=== PATIENT | male | born 1965 | race Caucasian/White ===

== ENCOUNTER 2018-01-28 18:18 | Emergency (ER) | payer BC ==
--- NOTE | 2018-01-28 19:32 | ED Physician Chart ---
ED Chief Complaint/HPI - Patient Information Date Seen:: 01/28/18 Time Seen:: 19:31 Chief Complaint:: Right lower jaw pain History of Present Illness:: 52 yo male had sudden onset of right lower jaw pain for 2 days. Had jaw trauma with right mandibular surgery 20 years ago. Currently taking acyclovir 400mg daily for herpes. Allergies:: Allergies Allergy/AdvReac Type Severity Reaction Status Date / Time No Known Allergies Allergy Verified 01/28/18 18:30 Vitals:: Vital Signs - 8 hr 01/28/18 18:31 Temp 97.2 F HR 66 RR 16 BP 156/90 O2 Sat % 100 ED Review of Systems - Review of Systems General/Constitutional: No fever, No chills ED Past Medical History - Past Medical History Past Medical History: Other (herpes) Social History: Non Smoker, Alcohol, No Drug Use Surgical History: other (right mandibular surgery) Family Medical History - Family Member Mother History Unknown: Yes ED Physical Exam - Physical Examination Other ENMT comments:: Right lingual side of gingival mucosal tenderness with erythema ED Labs/Radiology/EKG Results - Radiology Results Results: CT maxillofacial without contrast: no abnormality ED Assessment - Assessment General Assessment: Right mandibular gingivitis Assessment/Comments:: CT maxillofacial CBC, CMP D/c home Clindamycin 300mg q8h x 7 days Ibuprofen 800mg q12h x 7 days F/u PCP for ENT referral if symptoms worsen ED Septic Shock - . Is Septic Shock (SBP<90, OR Lactate>4 mmol\L) present?: No - <6hrs of presentation: Vital Signs: Vital Signs - 8 hr 01/28/18 18:31 Temp 97.2 F HR 66 RR 16 BP 156/90 O2 Sat % 100 ED Reassessment (Disposition) - Reassessment Reassessment Condition:: Unchanged - Patient Disposition Discharge/Transfer:: Home ED Discharge Plan - Patient Disposition Instructions: Gingivitis, Mandibular Contusion, [id number]
[2018-01-28 20:32] LABS: % BASOPHILS 0.5 % (0.0-2.0); % EOSINOPHILS 1.9 % (0.0-5.0); % LYMPHOCYTES 25.2 % (20.0-50.0); % MONOCYTES 6.6 % (2.0-10.0); % NEUTROPHILS 65.8 % (40.0-80.0); EOSINOPHILE ABSOLUTE 0.2 Th/cmm (0.1-0.4); HEMATOCRIT 45.2 % (41.0-60); HEMOGLOBIN 15.3 gm/dL (12-16); LYMPHOCYTE ABSOLUTE 2.2 Th/cmm (1.5-3.0); MEAN CELL VOLUME 90.2 fl (80-99); MEAN CORPUSCULAR HEMOGLOBIN 30.5 pg (26.0-30.0); MEAN CORPUSCULAR HGB CONC 33.9 pg (28.0-36.0); MEAN PLATELET VOLUME 9.5 fl; MONOCYTE ABSOLUTE 0.6 Th/cmm (0.3-1.0); NEUTROPHILE ABSOLUTE 5.8 Th/cmm (1.8-8.0); PLATELET COUNT 267 Th/cmm (150-400); RED BLOOD COUNT 5.02 Mil/cmm (4.30-5.70); RED CELL DISTRIBUTION WIDTH 12.2 % (11.5-20.0); WHITE BLOOD COUNT 8.8 Th/cmm (4.8-10.8)
[2018-01-28 20:45] LABS: ALB/GLOB RATIO 2.1 (1.0-1.8); ALBUMIN 4.8 gm/dL (4.2-5.5); ALKALINE PHOSPHATASE 67 U/L (34-104); ANION GAP 9.6 (7.0-16.0); BILIRUBIN,TOTAL 0.5 mg/dL (0.3-1.0); BUN - UREA NITROGEN 15 mg/dL (7-25); CALCIUM SERUM 9.7 mg/dL (8.6-10.3); CARBON DIOXIDE 25.7 mEq/L (21.0-31.0); CHLORIDE 104 mEq/L (98-107); GFR AFRICAN-AMERICAN > 60.0 ml/min (>90); GFR NON AFRICAN-AMERICAN > 60.0 ml/min; GLUCOSE 104 mg/dL (70-105); POTASSIUM SERUM 4.3 mEq/L (3.5-5.1); SGOT 13 U/L (13-39); SGPT/ALT 20 U/L (7-52); SODIUM SERUM 135 mEq/L (136-145); TOTAL PROTEIN,SERUM 7.1 gm/dL (6.0-8.3)
--- NOTE | 2018-01-29 08:31 | Diagnostic Imaging Report ---
Exam: CT examination of facial bones Right lower jaw pain. Total DLP equals 435 CTDI equals 20.6 Findings: Multiple contiguous thin section of facial bones obtained the plane with coronal sagittal reconstruction technique, no prior studies available comparison. The study demonstrates no evidence of fracture dislocation. The maxillary mandible intact. Zygomatic arches are normal. The orbits are intact. Intraconal content is normal. The nasal bones are intact. There is evidence for extensive the dental disease with the metallic artifact status post the dental fillings placement. IMPRESSION: Essentially unremarkable examination of the facial bones.
== END 2018-01-28 21:10 | disposition home or self-care (01) ==
LOC: ER 18:18
DX: K05.10 Chronic gingivitis, plaque induced (principal)
CPT/HCPCS: 36415-UA; 70486-TC; 80053-TC; 85025-TC